=== PATIENT | male | born 1955 ===

== ENCOUNTER 2018-02-17 00:35 | Day surgery (SDC) | payer MEDICARE, OTHER ==
[~2018-02-17] VITALS: Ht 175.3 cm; Wt 56.7 kg
[~2018-02-17 00:35] MED LIST: AMOX-559 PO; ASPI-1471 PO; AZIT-18 PO; BUSP7.5T7 PO; CYCL10TA29 PO; DULO60CA7 PO; FLUT16SP19 NS; GABA-549 PO; HYDR-2966 PO; LABE100T2 PO; LAMO200T3 PO; LEVO-85 PO; LIDOCAINE/SOD BICARB 8.4% SYR ID ONE; MULT-1097 PO; OXYC-865 PO; OXYC1TAB78 PO; OXYC20TA61 PO; TRAZ100T31 PO
[2018-02-17 06:22] LABS: PLATELET COUNT, AUTOMATED 426 K/uL (150-450)
[2018-02-17 06:25] VITALS: BP 110/82
[2018-02-17] MEDS ORDERED: ceFAZolin(*) 2GM/D5W 50ML 50 ML IVPB ONE (06:45)
[2018-02-17] MEDS ORDERED: NORMOSOL R SOLN(*) 1000 ML BAG 1,000 ML IV PRN (06:45)
[2018-02-17] MEDS ORDERED: ACETAMINOPHEN 500 MG TAB PO ONE (06:45)
[2018-02-17] MEDS ORDERED: MIDAZOLAM 2 MG/2 ML VIAL IVP PRN (06:45)
[2018-02-17] MEDS ORDERED: PREGABALIN 150 MG CAPSULE PO ONE (06:45)
[2018-02-17] MEDS ORDERED: FAMOTIDINE 20 MG TAB PO ONE (06:45)
[2018-02-17] MEDS ORDERED: LIDOCAINE/SOD BICARB 8.4% SYR ID ONE (06:45)
--- NOTE | 2018-02-17 06:46 | EKG ---
FACILITY: [facility] - [place], [place] PATIENT NAME: PATRICIA MCGINNIS : [id number] MR: [id number] V: [id number] EXAM DATE: ORDERING PHYSICIAN: AAMIR GOLDSMITH TECHNOLOGIST: Test Reason : PRE-OP Blood Pressure : / mmHG Vent. Rate : 084 BPM Atrial Rate : 084 BPM P-R Int : 154 ms QRS Dur : 090 ms QT Int : 374 ms P-R-T Axes : 056 061 061 degrees QTc Int : 441 ms Normal sinus rhythm Normal ECG When compared with ECG of 02-JUL-2016 03:01, T wave amplitude has increased in Anterior leads QT has shortened Confirmed by IGOR SUÁREZ ([id number]) on 02/17/2018 6:58:25 AM Referred By: Confirmed By:IGOR SUÁREZ
[2018-02-17] MEDS ORDERED: SUGAMMADEX SOD 200 MG/2 ML SDV ONE (07:08)
[2018-02-17] MEDS ORDERED: LIDOCAINE MPF 1% 5 ML VIAL ONE (07:08)
[2018-02-17] MEDS ORDERED: METOCLOPRAMIDE 10 MG/2 ML SDV ONE (07:08)
[2018-02-17] MEDS ORDERED: ONDANSETRON 4 MG/2 ML VIAL ONE ×2 (07:08→09:49)
[2018-02-17] MEDS ORDERED: PROPOFOL EMUL(*) 10MG/ML 20 ML 20 ML ONE (07:08)
[2018-02-17] MEDS ORDERED: DEXAMETHASONE SOD 4 MG/ML VIAL ONE (07:08)
[2018-02-17] MEDS ORDERED: fentaNYL CITR 100 MCG/2 ML AMP ONE ×3 (07:09→10:08)
[2018-02-17] MEDS ORDERED: ROPIVACAINE 0.5% 20 ML VIAL ONE (07:12)
[2018-02-17] MEDS ORDERED: NS(*) 0.9% 250 ML BAG 250 ML ONE (09:09)
[2018-02-17] MEDS ORDERED: DOCU-416 PO (09:55)
[2018-02-17] MEDS ORDERED: OXYC-854 PO (09:55)
--- NOTE | 2018-02-17 09:58 | Short(Outpt) Discharge Summary ---
Discharge Summary Reason for Hosp/Final Diag: (1) Right inguinal hernia Status: Chronic Hospital Course & Plan: Robotic RIH repair completed without problems. Departure Discharge to: Home, Self Care Discharge Instructions Home Meds Active Scripts Docusate Sodium (COLACE) 100 Mg Capsule, 1 CAP PO BID, #30 CAP 0 Refills TAKE WITH A FULL GLASS OF WATER Prov:ABRAHAN WATTS MD 02/17/18 Oxycodone Hcl/Acet 5/325 Mg (ENDOCET 5-325 TABLET) 1 Each Tablet, 1-2 TAB PO Q4H PRN for PAIN, #30 TAB 0 Refills Prov:ABRAHAN WATTS MD 02/17/18 Reported Medications Trazodone Hcl (TRAZODONE HCL) 100 Mg Tablet, 100 MG PO PRN, TAB 02/07/18 Labetalol Hcl (LABETALOL HCL) 100 Mg Tablet, 100 MG PO BIDBS for Blood Pressure 02/07/18 Oxycodone Hcl 20 Mg Tab (OXYCODONE HCL 20 MG TAB) 20 Mg Tablet, 20 MG PO Q6H for PAIN, TAB 02/07/18 Buspirone Hcl (BUSPIRONE HCL) 7.5 Mg Tablet, 15 MG PO BID for Anxiety, #20 TAB 02/07/18 Follow up Referrals: General Surgery - 03/04/18 @ Surgery, General with ABRAHAN WATTS MD You have a follow up appointment scheduled with Dr. Watts on 03/04/18, at 12:00pm. Diet: Regular Activity: No Heavy Lifting Special Instructions: You may remove the white surgical dressings on 02/19/18, then you can shower. After showering, leave the incisions open to air but leave the steristrips in place until they fall off on their own. Do not immerse the incisions for 2 weeks. Avoid any activities that involve straining or lifting more than 10 pounds for 2 weeks after surgery. ABRAHAN WATTS MD Feb 17, 2018 09:58
--- NOTE | 2018-02-17 10:03 | Post Operative Progress Note ---
Post Operative Progress Note Date: Feb 17, 2018 Time: 09:58 Surgeon: Ivan Dictation number: [id number] Anesthesia: GETA by Dr. Pollock Pre-Op Diagnosis: RIH Post-Op Diagnosis: RIH, indirect Findings: C/W dx Procedure(s): Robotic RIH repair Specimen Removed:(May be N/A): None Complications: None Fluids: See anesthesia record Estimated Blood Loss: Minimal Date OP Note Dictated: Feb 17, 2018 Time OP Note Dictated: 09:59 ABRAHAN WATTS MD Feb 17, 2018 10:03
[2018-02-17] MEDS ORDERED: HYDROmorphone HCL 2 MG/ML SDV ONE (10:25)
[2018-02-17 11:13] VITALS: BP 111/73
[2018-02-17 11:45] VITALS: BP 111/76
[2018-02-17 12:15] VITALS: BP 108/71
[2018-02-17 12:18] VITALS: BP 86/62
--- NOTE | 2018-02-17 14:43 | OPERATIVE REPORT 1 ---
EVENT DATE: February 17, 2018 SURGEON: Fernando Love MD ANESTHESIOLOGIST: Fernando Pollock MD ANESTHESIA: General endotracheal anesthesia. PREOPERATIVE DIAGNOSIS Right inguinal hernia. POSTOPERATIVE DIAGNOSIS Right inguinal hernia, indirect. PROCEDURE PERFORMED Robotic right inguinal hernia repair. COMPLICATIONS None. CONDITION Stable. BLOOD LOSS Minimal. INDICATIONS This 62-year-old gentleman presented to my office with a right groin bulge. It was slowly getting bigger and bothering him. Exam was consistent with an inguinal hernia, and he was requesting to have it repaired. DESCRIPTION OF PROCEDURE The patient was brought to the operating room and placed supine on the operating table. General endotracheal anesthesia was administered. His abdomen was prepped and draped in a sterile fashion. Timeout was completed, and I injected 0.5% ropivacaine plain into the left subcostal skin. I made an 8 mm transverse incision right in this area and used a Veress needle to access the peritoneal cavity without any problems. I insufflated the abdomen to a pressure of 15 mmHg. I then used a robotic 8 mm optical trocar with a camera in and focused and inserted the trocar into the insufflated abdomen without any problems. I inspected the groin, and there was no hernia on the left, only an indirect hernia on the right. I then placed an 8 mm robotic port under direct visualization in the right subcostal area and a third 8 mm port in the epigastric midline. I then inserted the right-sided ProGrip mesh and a 9-inch durable V-Loc suture into the peritoneal cavity and then brought in the robot, docked and targeted the robot, and inserted the instruments. I then scrubbed out and went to the console and divided the peritoneum from just medial to the anterior superior iliac spine on the right all the way to the midline and then stripped the peritoneum down and created a nice pocket in the preperitoneal space. I cleaned off the pubic tubercle, Socrates ligament, and the iliopubic tract all the way laterally. He had a large hernia sac going down through the inguinal canal through the internal ring. I stripped off the sac away from the cord structures and clearly identified the vas deferens and the gonadal vessels. The sac was very large, and I ended up tearing it, so I ended up dividing the sac at this point and leaving the distal end of the sac in the canal. Once I had it cleaned off, the peritoneal edge was stripped way down away from where the cord structures splay. I deployed the right-sided ProGrip mesh in the preperitoneal space and unfurled it so it laid nice and flat and covered the whole myopectineal orifice for several centimeters on all sides. There was no peritoneum going underneath the mesh. It overlaid the pubic tubercle and Socrates ligament medially and the iliopubic tract laterally. Once this was done, I sewed the incision in the peritoneum with the running V-Loc suture, and then I had another V-Loc suture inserted, and I closed the resulting hole in the peritoneum where I divided the hernia sac. At the end of this case, the peritoneum looked great, and there were no holes or exposed mesh. I then removed the instruments, undocked the robot, scrubbed back in, and then closed the incisions with 4-0 Monocryl subcuticular suture. The skin was cleaned and dried, and Steri-Strips were applied, followed by sterile surgical dressings. The patient was awakened, extubated in the operating room, and transported to the recovery room in stable condition having tolerated the procedure without any apparent problems. YOHAN
== END 2018-02-17 11:13 | disposition home or self-care (01) ==
LOC: OR 00:35
PROVIDERS: ATTEND Surgery
DX: K40.90 Unilateral inguinal hernia, without obstruction or gangrene, not specified as recurrent (principal); I10 Essential (primary) hypertension
CPT/HCPCS: 36415; 49650; 85025; 93005; A9270; C1781; J1100; J1170; J2001; J2250; J2405; J2704; J2765; J2795; J3010; J7050; S2900; 82310; 82374; 82435; 82565; 82947; 84132; 84295; 84520; J0690

== ENCOUNTER → 2018-08-30 | Outpatient (REF) | payer MEDICARE, OTHER ==
[~2018-08-30] MED LIST changes: +DOCU-416 PO; -LIDOCAINE/SOD BICARB 8.4% SYR ID ONE; -MULT-1097 PO; +MULT-1540 PO; +OXYC-854 PO
== END ==
LOC: ZZSENDIN 12:00
PROVIDERS: ATTEND Family Medicine
DX: L82.1 Other seborrheic keratosis (principal)
CPT/HCPCS: 88305